=== PATIENT | male | born 2005 | race Caucasian/White ===

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

== ENCOUNTER 2024-12-24 12:56 | Outpatient (CLI) | payer OTHER, SELFPAY ==
--- NOTE | 2024-12-24 13:05 | DI.RAD_ITS ---
Exam(s) XR HAND LT COMPLETE EXAM: XR HAND LT COMPLETE CLINICAL HISTORY: laceration of hand with knife, S61.419A, r/o bony injury base of thumb. TECHNIQUE: 2D digital imaging was performed. COMPARISON: No exams were available for comparison FINDINGS: 3 views No evidence of fracture or dislocation nor radiopaque foreign body. No osseous lesions. There is no gas in the soft tissues. No incidental osseous lesions. IMPRESSION: No significant osseous findings in the hand. DATA REPOSITORY: RADIATION DOSE DELIVERED:
== END 2024-12-24 13:16 ==
PROVIDERS: PCP Physician Assistant; Visit Provider Student in an Organized Health Care Education/Training Program
DX: S61.412A Laceration without foreign body of left hand, initial encounter (principal); X58.XXXA Exposure to other specified factors, initial encounter
CPT/HCPCS: 73130